=== PATIENT | male | born 1965 | race Two or more races ===

== ENCOUNTER 2022-02-12 08:24 | Emergency (ER) | payer OTHER, SELFPAY ==
--- NOTE | ~2022-02-12 | XR_ITS ---
EXAMINATION: XR CHEST CLINICAL INFORMATION: Chest pain COMPARISON: None TECHNIQUE: Frontal view of the chest was obtained. FINDINGS: Diffuse coarse interstitial opacity. No focal consolidation. No pleural effusion. Normal heart size. Regional skeleton intact. XR/XR chest 1V IMPRESSION: Diffuse coarse interstitial opacity is seen. This can be seen acutely with bronchiolitis or interstitial pneumonitis, chronically with chronic bronchitis or reactive airways disease.
--- NOTE | 2022-02-12 08:27 | ECG_ITS ---
Test Reason : cp Blood Pressure : / mmHG Vent. Rate : 082 BPM Atrial Rate : 082 BPM P-R Int : 140 ms QRS Dur : 078 ms QT Int : 396 ms P-R-T Axes : 067 014 -48 degrees QTc Int : 462 ms Normal sinus rhythm Marked ST abnormality, possible anterior subendocardial injury T-wave inversion in Anterior leads Abnormal ECG No previous ECGs available Referred By: Generic ED Physician Electronically Signed By:KERI HARP MD
[2022-02-12 08:30] VITALS: BP 153/85; PULSE 85; RESP 16; TEMP 36.6; O2SAT 97; BMI 21.9
--- NOTE | 2022-02-12 08:43 | ED.CHESTPAIN ---
HPI - Chest Pain General Chief Complaint: Chest Pain Stated Complaint: chest pain Time Seen by Provider: 02/12/22 08:40 Source: patient, RN notes reviewed and translator/interpreter Mode of arrival: ambulatory Limitations: language barrier History of Present Illness HPI narrative: 56-year-old Lao speaking male presenting to the emergency department today complaining of some chest tightness, arm pain, shortness of breath. In through the use of translator/interpreter, it is determined that the patient has had chest pain intermittently MD complaint: chest pain Onset (ago): hour(s) (Several) Timing of current episode: constant Prior episodes: No Onset: during rest Pain location: substernal Pain radiation: right arm and left arm Severity: mild Risk Factors Coronary artery disease risk factors: none (None known) Related Data Allergies Allergy/AdvReac Type Severity Reaction Status Date / Time No Known Allergies Allergy Verified 02/12/22 08:41 Review of Systems Review of Systems: ROS is limited due to the patient's language barrier as well as the emergent nature of his chief complaint Constitutional: Constitutional: Denies chills, Denies fever(s) and Denies headache(s) Eyes: Eyes: Denies blurry vision, Denies change in vision and Denies itchy eyes ENT: Denies dizziness, Denies headache(s) and Reports neck pain Cardiovascular: Cardiovascular: Reports cool extremities, Reports chest pain, Reports chest pain at rest, Denies rapid heart rate, Denies leg edema and Reports dyspnea Respiratory: Respiratory: Denies cough, Reports dyspnea and Denies wheezing Gastrointestinal: Gastrointestinal: Denies abdominal pain and Denies vomiting Genitourinary: Genitourinary: Reports no additional male genitourinary complaints Musculoskeletal: Musculoskeletal: Reports back pain and Reports neck pain Neurologic: Denies dizziness and Denies headache(s) Psychiatric: Psychiatric: Denies anxiety and Denies depression Hematologic/Lymphatic: Hematologic/Lymphatic: Denies easy bleeding and Denies easy bruising Allergic/Immunologic: Allergic/Immunologic: Denies urticaria, Denies itchy eyes and Denies wheezing PMFSH Past Medical History Medical History HTN (hypertension) Social History Social History Advance Directives: No Advance Directives Information Provided: No Physical Exam Vital Signs: Vital Signs: Last Vital Signs Temp 98 F 02/12/22 08:30 Pulse 67 02/12/22 13:07 Resp 38 H 02/12/22 13:07 BP 154/89 H 02/12/22 13:07 Pulse Ox 100 02/12/22 13:07 O2 Del Method 02/12/22 13:07 BMI result Body Mass Index 21.9 Course Reevaluation(s) Reevaluation #1: Remains hemodynamically stable. Troponin resulted at 816. Repeat EKG pending Time: 10:19 Reevaluation #2: Troponin #2, 2,090 Time: 13:27 Consultations Consultation #1: Dr. White Time: 10:24 MDM - Chest Pain MDM Narrative Medical decision making narrative: 56 yo male, Lao speaking, presented this a.m. with vague symptoms of chest pain, but also arm and leg pain. Initial EKG very concerning for Wellen's criteria, and initial troponin confirmed cardiac involvement with a trop of 816. The patient was seen in consult by Dr. White in the ED, and arrangements were made for transfer to [facility]. The patient was started on IV heparin, as well as receiving Brilinta, aspirin, nitroglycerin and a statin. As of approximately 11:30, the patient was pain-free. Differential Diagnosis Differential diagnosis: Likely unstable angina pectoris Differential diagnosis: NSTEMI Medical Records Data Medical records narrative: No medical records are available for review Lab Data Attestation: I reviewed the patient's lab results. Lab results narrative: CBC and chemistry normal. Most notable troponin of 816. Result diagrams: 02/12/22 09:28 02/12/22 09:28 Labs: Lab Results 02/12/22 02/12/22 02/12/22 Range/Units 09:28 09:28 09:28 WBC 5.9 (4.8-10.8) X10*3/uL RBC 5.05 (4.60-5.80) X10*6/uL Hgb 14.3 (14.0-18.0) g/dl Hct 42.1 (42.0-52.0) % MCV 83.4 (80.0-98.0) fL MCH 28.3 (27.0-33.0) pg MCHC 34.0 (31.0-36.0) g/dl RDW 12.6 (11.0-16.0) % Plt Count 230 (160-400) X10*3/uL MPV 10.1 (9.4-12.4) fL Immature Gran % (Auto) 0.2 (0.0-0.4) % Neut % (Auto) 59.4 (45-73) % Lymph % (Auto) 30.6 (20-40) % [place] % (Auto) 8.5 (2-11) % Eos % (Auto) 0.8 (0-4) % Baso % (Auto) 0.5 (0-2) % Lymph # (Auto) 1.8 (1.2-4.9) X10*3/uL [place] # (Auto) 0.5 (0.1-1.2) X10*3/uL Eos # (Auto) 0.1 (0.0-0.4) X10*3/uL Baso # (Auto) 0.0 (0.0-0.2) X10*3/uL Abs Immat Gran (auto) 0.01 (0.00-0.03) X10*3/uL Absolute Neuts (auto) 3.5 (2.0-8.3) x10*3/uL Absolute Nucleated RBC 0.000 (0.0-0.012) X10*3/uL Nucleated RBC % (auto) 0.0 (0.0-0.2) /100WBC PT (10.0-13.1) SEC INR (0.9-1.1) APTT (26.0-36.4) SEC Sodium 135 (135-145) mmol/L Potassium 5.0 (3.3-5.1) mmol/L Chloride 103 (96-108) mmol/L Carbon Dioxide 24 (22-29) mmol/L Anion Gap 13 (12-20) BUN 11 (9-16) mg/dL Creatinine 1.03 (0.5-1.4) mg/dL Estim Creat Clear Calc TNP Estimated GFR > 60 Random Glucose 122 H (60-115) mg/dL Calcium 9.0 (8.4-10.2) mg/dL Troponin I High Sens 816.4 H* (<3.5-35.0) ng/L COVID-19 ([facility]) (Negative) COVID-19 Clin Com 02/12/22 02/12/22 02/12/22 Range/Units 11:09 12:33 12:42 WBC (4.8-10.8) X10*3/uL RBC (4.60-5.80) X10*6/uL Hgb (14.0-18.0) g/dl Hct (42.0-52.0) % MCV (80.0-98.0) fL MCH (27.0-33.0) pg MCHC (31.0-36.0) g/dl RDW (11.0-16.0) % Plt Count (160-400) X10*3/uL MPV (9.4-12.4) fL Immature Gran % (Auto) (0.0-0.4) % Neut % (Auto) (45-73) % Lymph % (Auto) (20-40) % [place] % (Auto) (2-11) % Eos % (Auto) (0-4) % Baso % (Auto) (0-2) % Lymph # (Auto) (1.2-4.9) X10*3/uL [place] # (Auto) (0.1-1.2) X10*3/uL Eos # (Auto) (0.0-0.4) X10*3/uL Baso # (Auto) (0.0-0.2) X10*3/uL Abs Immat Gran (auto) (0.00-0.03) X10*3/uL Absolute Neuts (auto) (2.0-8.3) x10*3/uL Absolute Nucleated RBC (0.0-0.012) X10*3/uL Nucleated RBC % (auto) (0.0-0.2) /100WBC PT 11.9 (10.0-13.1) SEC INR 1.0 (0.9-1.1) APTT 35.1 (26.0-36.4) SEC Sodium (135-145) mmol/L Potassium (3.3-5.1) mmol/L Chloride (96-108) mmol/L Carbon Dioxide (22-29) mmol/L Anion Gap (12-20) BUN (9-16) mg/dL Creatinine (0.5-1.4) mg/dL Estim Creat Clear Calc Estimated GFR Random Glucose (60-115) mg/dL Calcium (8.4-10.2) mg/dL Troponin I High Sens 2095.8 H* D (<3.5-35.0) ng/L COVID-19 ([facility]) Positive A (Negative) COVID-19 Clin Com See Note Imaging Data Chest x-ray: Attestation: I personally reviewed and interpreted this imaging study as follows: My impression: Increased pulmonary vascular markings. No pneumothorax, pneumonia. Normal heart size. Radiologist's impression: IMPRESSION: Diffuse coarse interstitial opacity is seen. This can be seen acutely with bronchiolitis or interstitial pneumonitis, chronically with chronic bronchitis or reactive airways disease ECG Data ECG #1: Attestation: I personally reviewed and interpreted this ECG as follows: ECG interpretation date: 02/12/22 ECG interpretation time: 08:43 Interpretation: Normal sinus rhythm, normal rate, biphasic and inverted T-waves in the anterolateral leads consistent with Wellens criteria. Additionally there is some ST depression in the inferior leads ECG #2: Attestation: I personally reviewed and interpreted this ECG as follows: ECG interpretation date: 02/12/22 ECG interpretation time: 10:30 Prior ECG tracings: available for review Ischemic changes: acute NSTEMI and t wave inversions Interpretation: Sinus rhythm at a normal rate of 68. Previously-seen T-wave inversions and biphasic T-waves are again noted, however appearance is more pronounced than the EKG from 08:30 this morning. ECG #3: Attestation: I personally reviewed and interpreted this ECG as follows: ECG interpretation date: 02/12/22 ECG interpretation time: 13:23 Prior ECG tracings: available for review Ischemic changes: acute NSTEMI Interpretation: Normal sinus rhythm at 76, MA, QRS and QT intervals remain normal, ST and T-wave abnormalities persist in all the anterior leads, V1 through V6, however severity of T-wave inversion has decreased somewhat Critical Care Time Critical Care Time Critical Care Time: Yes Total Critical Care Time: 80 Attestation: The patient arrived to the ED with a critical illness, or critical findings necessitating immediate assessment. Cardiopulmonary monitoring was initiated due to the potential for rapid decompensation of the patient's clinical condition. During the course of the patient?s stay, significant time was spent at the bedside performing serial re-evaluations of the patient's hemodynamic and clinical status because of the recognized potential threat to life or limb in this condition. The patient received IV and oral medications for an acute NSTEMI. All of the available current laboratory and radiographic studies obtained were reviewed. No old records were available for review. Additionally, ancillary information available including EMS records were reviewed. The case was discussed with the patient, as well as the cumulative effects analyst, Dr. White. Sequential vital signs were obtained. Critical Care time of 80 minutes was performed exclusive of billable procedures Discharge Plan Discharge Clinical Impression: Acute coronary syndrome, Chest pain, Acute non-ST elevation myocardial infarction (NSTEMI) Patient Disposition: [facility] Transfer Details: [facility] for emergent cardiac intervention
[2022-02-12 09:16] VITALS: BMI 21.9
[2022-02-12 09:22] VITALS: BP 128/76; PULSE 80; RESP 25; O2SAT 100
[2022-02-12 09:32] LABS: MANUAL DIFF FLAG NO
--- NOTE | 2022-02-12 09:32 | ECG_ITS ---
Test Reason : REPEAT Blood Pressure : / mmHG Vent. Rate : 076 BPM Atrial Rate : 076 BPM P-R Int : 142 ms QRS Dur : 080 ms QT Int : 414 ms P-R-T Axes : 051 011 029 degrees QTc Int : 465 ms Normal sinus rhythm ST & T wave abnormality, consider anterolateral ischemia Prolonged QT Abnormal ECG When compared with ECG of 12-FEB-2022 10:33, No significant changes seen Referred By: Billy Carias Electronically Signed By:KERI HARP MD
[2022-02-12 09:33] LABS: Basophils Percent Auto 0.5 % (0-2); Eosinophils Absolute Auto 0.1 X10*3/uL (0.0-0.4); Eosinophils Percent Auto 0.8 % (0-4); Hematocrit 42.1 % (42.0-52.0); Hemoglobin 14.3 g/dl (14.0-18.0); Imm Gran Abs Auto 0.01 X10*3/uL (0.00-0.03); Imm Gran Pct Auto 0.2 % (0.0-0.4); Lymphocytes Absolute Auto 1.8 X10*3/uL (1.2-4.9); Lymphocytes Percent Auto 30.6 % (20-40); Mean Corpuscular Hemoglobin 28.3 pg (27.0-33.0); Mean Corpuscular Volume 83.4 fL (80.0-98.0); Mean Platelet Volume 10.1 fL (9.4-12.4); Monocytes Absolute Auto 0.5 X10*3/uL (0.1-1.2); Monocytes Percent Auto 8.5 % (2-11); Neutrophils Absolute Auto 3.5 x10*3/uL (2.0-8.3); Neutrophils Percent Auto 59.4 % (45-73); Platelet Count 230 X10*3/uL (160-400); Red Blood Count 5.05 X10*6/uL (4.60-5.80); Red Cell Distribution Width 12.6 % (11.0-16.0); White Blood Count 5.9 X10*3/uL (4.8-10.8)
[2022-02-12] MEDS: Aspirin 81 MG TAB.CHEW 324 MG PO (09:43)
[2022-02-12 09:47] LABS: Anion Gap 13 (12-20); Blood Urea Nitrogen 11 mg/dL (9-16); Carbon Dioxide 24 mmol/L (22-29); Chloride 103 mmol/L (96-108); Estimated Glomerular Filt Rate > 60; Glucose Random 122 mg/dL (60-115); Sodium 135 mmol/L (135-145)
[2022-02-12 10:13] LABS: Troponin-I High Sensitivity 816.4 ng/L (<3.5-35.0)
[2022-02-12 10:17] VITALS: BP 122/75; PULSE 72; RESP 22; O2SAT 97
--- NOTE | 2022-02-12 10:29 | ECG_ITS ---
Test Reason : REPEAT Blood Pressure : / mmHG Vent. Rate : 068 BPM Atrial Rate : 068 BPM P-R Int : 140 ms QRS Dur : 090 ms QT Int : 432 ms P-R-T Axes : 027 010 -28 degrees QTc Int : 459 ms Normal sinus rhythm Minimal voltage criteria for LVH, may be normal variant ( Sokolow-Andrews ) ST & Marked T wave abnormality, consider anterolateral ischemia Abnormal ECG When compared with ECG of 12-FEB-2022 08:31, T wave inversion more evident in Anterior leads Referred By: Billy Carias Electronically Signed By:KERI HARP MD
--- NOTE | 2022-02-12 11:02 | PM.CNCAR ---
History of Present Illness History of Present Illness Date of Service: 02/12/22 Requesting physician: Billy Carias Consult reason: myocardial infarction Chief complaint: chest pain Narrative: I was requested to see Mr. Guerra who speaks Italian sudden acute onset chest pain. History was obtained with help of a certified translator/interpreter over the telephone. Ago history was able to be obtained. Mr. Guerra is otherwise healthy and active 56-year-old male with prior history of hypertension which she says is usually controlled on dual therapy. Patient started having chest discomfort about 15 days ago. However the chest discomfort was on and off, not clear whether this was only exertional related. Last significant episode of chest pain was 3 days ago when he developed around 23:00 chest discomfort radiating to his right arm with tingling which lasted for about 3 hours. Patient did not seek emergency care for went to an urgent care very was given some muscle relaxants. This was because at that time patient was complaining of also diffuse pain in his arms and his legs. However this morning he was scheduled to and after make appointment and was being taken by wall into will notice that he was having significant shortness of breath and then patient was complain of chest pain was looking acute distress and decided to bring him to the emergency room air. Initial EKG done shows some slight ST elevation V1 V2 with deep T-wave inversions in the precordial leads repeat EKG continues to show similar changes with initial troponin of in the 800 range. Patient said his pain started this episode at 01:00 this morning and was persistently present till he came to the emergency room here. He was given 1 sublingual nitroglycerin with improvement in his chest pain syndrome from level 10 to level 5. He did get 324 mg of aspirin. IV heparin has been ordered but not received as yet. Patient says his pain feels like pressure in his retrosternal area with radiation to right arm which feels like numbness and also radiation to his right scapula. He looks a lot more comfortable and not short of breath at this point in time. Denies any recent upper respiratory or any constitutional symptoms. He has never had this discomfort ever in the past. Denies any family history of coronary artery disease. Review of Systems Constitutional: Constitutional: Reports no additional constitutional complaints Eyes: Eyes: Reports no additional eye complaints Cardiovascular: Cardiovascular: Reports chest pain at rest, Denies lightheadedness, Denies Loss of Consciousness, Denies palpitations and Reports dyspnea Respiratory: Respiratory: Reports no additional respiratory complaints and Reports dyspnea Gastrointestinal: Gastrointestinal: Reports no additional gastrointestinal complaints Genitourinary: Genitourinary: Reports no additional male genitourinary complaints Musculoskeletal: Musculoskeletal: Reports no additional musculoskeletal complaints Integumentary/Breasts: Skin/Breast: Reports system reviewed and no additional complaints, except as docu Neurologic: Reports system reviewed and no additional complaints, except as documented Psychiatric: Psychiatric: Reports no additional psychiatric complaints Endocrine: Endocrine: Reports no additional endocrine complaints and Denies palpitations Hematologic/Lymphatic: Hematologic/Lymphatic: Reports no additional hematologic/lymphatic complaints Allergic/Immunologic: Allergic/Immunologic: Reports no additional allergic/immunologic complaints [facility] Past Medical History Medical History HTN (hypertension) Social History Social History Advance Directives: No Advance Directives Information Provided: No Meds Allergies Allergy/AdvReac Type Severity Reaction Status Date / Time No Known Allergies Allergy Verified 02/12/22 08:41 Active Medications: Current Medications Heparin Sodium/Sodium Chloride (Heparin Sodium,Porcine/1/2ns) 25,000 unit in 250 mls @ 0 mls/hr IVCONT .Q0M VALENTINE; Protocol Nitroglycerin (Nitroglycerin 0.4 Mg Tab.Subl) 0.4 mg SUBLINGUAL [id number] PRN PRN Reason: CP Physical Exam Vital Signs: Vital Signs: Last Vital Signs Temp 98 F 02/12/22 08:30 Pulse 72 02/12/22 10:17 Resp 22 H 02/12/22 10:17 BP 122/75 02/12/22 10:17 Pulse Ox 97 02/12/22 10:17 O2 Del Method 02/12/22 10:17 BMI result Body Mass Index 0.0 Const: General: cooperative, comfortable, no acute distress, well developed, alert and awake Nutritional Appearance: average body habitus Orientation/consciousness: patient oriented x3 Limitations: no limitations HEENT: Head: Yes normocephalic and Yes atraumatic Neck: Neck: Yes trachea midline, Yes supple and Yes no JVD Chest: Chest palpation & inspection: normal inspection of the chest Resp: Effort & Inspection: normal respiratory effort Auscultation: clear to auscultation bilaterally Cardio: Jugular venous distension: no JVD Palpation: normal PMI Rate: regular rate Rhythm: regular rhythm Heart sounds: S1 normal heart sound present, S2 normal heart sound present, no click, no gallops, no murmurs and no rubs GI: Auscultation: normal bowel sounds Skin: General skin exam: no rashes or lesions noted Neuro: General: patient oriented x3 and no focal motor deficits Extrem: General: Yes no clubbing, cyanosis or edema Psych: Appearance: grossly normal Objective Labs and Meds Result diagrams: 02/12/22 09:28 02/12/22 09:28 Lab results: Laboratory Results - last 24 hr 02/12/22 02/12/22 02/12/22 09: 09: 09:28 WBC 5.9 RBC 5.05 Hgb 14.3 Hct 42.1 MCV 83.4 MCH 28.3 MCHC 34.0 RDW 12.6 Plt Count 230 MPV 10.1 Immature Gran % (Auto) 0.2 Neut % (Auto) 59.4 Lymph % (Auto) 30.6 [place] % (Auto) 8.5 Eos % (Auto) 0.8 Baso % (Auto) 0.5 Lymph # (Auto) 1.8 [place] # (Auto) 0.5 Eos # (Auto) 0.1 Baso # (Auto) 0.0 Abs Immat Gran (auto) 0.01 Absolute Neuts (auto) 3.5 Absolute Nucleated RBC 0.000 Nucleated RBC % (auto) 0.0 Sodium 135 Potassium 5.0 Chloride 103 Carbon Dioxide 24 Anion Gap 13 BUN 11 Creatinine 1.03 Estim Creat Clear Calc TNP Estimated GFR > 60 Random Glucose 122 H Calcium 9.0 Troponin I High Sens 816.4 H* Imaging Radiologist's impression: Impressions Chest X-Ray 02/12/22 09:44 IMPRESSION: Diffuse coarse interstitial opacity is seen. This can be seen acutely with bronchiolitis or interstitial pneumonitis, chronically with chronic bronchitis or reactive airways disease. Assessment and Plan (1) Acute coronary syndrome: Status: Acute Patient presents with symptoms and EKG as well as blood finding suggestive of high risk for acute coronary syndrome with EKG changes suggestive LAD territory ischemia. I had a discussion with him with help of the translator/interpreter at as to the findings and treatment as required further. He should be stabilized. IV heparin needs to be started after establishing and IV line. Will also given Brilinta 180 mg and Lipitor 80 mg p.o.. Nitropaste 1/2 inch to his chest. Continue monitor blood pressure closely. Once nitropaste is put on his blood pressure is stable will also given a p.o. metoprolol dose 25 mg. Patient requires cardiac catheterization to further evaluate for acute coronary syndrome. We discussed the procedure in details including risk, benefits, alternatives 2nd open to procedure. He understands agrees. Patient will be transferred to [facility]. If he continues to have chest pain will need to go to PCU unit and an urgent cardiac catheterization. This was discussed with him as well. He understands agrees. For now his blood pressure is optimal. Greater than 40 minutes was spent in managing his care and arranging for transfer to [facility]. Procedures Date of Service Date of Service: 02/12/22
[2022-02-12] MEDS: Nitroglycerin 2 % Oint 1 GM Packet 0.5 INCH TRANSDERMA (11:03)
[2022-02-12] MEDS: Ticagrelor 90 MG TABLET 180 MG PO (11:04)
[2022-02-12] MEDS: Atorvastatin Calcium 80 MG TABLET PO (11:04)
[2022-02-12 11:25] LABS: COVID-19 Test Positive (Negative); IDNOW Serial# 16C4AD1C
[2022-02-12] MEDS: Heparin Sodium,Porcine/1/2NS 25,000 UNIT/250 ML IV.SOLN 7.19 UNIT IVCONT (12:00)
--- NOTE | 2022-02-12 12:52 | PC.NURSE ---
CALLED [facility] FOR PATIENT TRANSFER, PT HAS BEEN EXCEPTED. NO ROOM AT THIS TIME THEY WILL CALL BACK WITH A ROOM NUMBER SOON
[2022-02-12 12:58] LABS: Prothrombin Time 11.9 SEC (10.0-13.1)
[2022-02-12 13:01] LABS: Partial Thromboplastin Time 35.1 SEC (26.0-36.4)
[2022-02-12 13:07] VITALS: BP 154/89; PULSE 67; RESP 38; O2SAT 100
[2022-02-12 13:25] LABS: Troponin-I High Sensitivity 2095.8 ng/L (<3.5-35.0)
== END 2022-02-12 15:30 | disposition short-term general hospital (02) ==
PROVIDERS: Emergency Provider Emergency Medicine
DX: U07.1 COVID-19 (principal); I24.9 Acute ischemic heart disease, unspecified; I21.4 Non-ST elevation (NSTEMI) myocardial infarction; I10 Essential (primary) hypertension; R07.9 Chest pain, unspecified
CPT/HCPCS: 36415; 71045; 80048; 84484; 85025; 85610; 85730; 87635; 93005; 96374; 99285